=== PATIENT | male | born 1950 | race Caucasian/White ===

== ENCOUNTER → 2017-08-10 | Outpatient (CLI) | payer OTHER ==
[~2017-08-10] MED LIST: ASPERDRINK81 MG; NIASPAN1000 MG; PLAVIX75 MG; PROTONIX40 MG; TOPROL XL100 MG; VYTORIN 10-801 EACH; ZESTRIL,PRINIVI10 MG
== END | disposition home or self-care (01) ==
LOC: EKG 13:55
DX: I05.1 Rheumatic mitral insufficiency (principal); I07.1 Rheumatic tricuspid insufficiency; I51.7 Cardiomegaly
CPT/HCPCS: 93306